=== PATIENT | male | born 1955 | race Caucasian/White ===

== ENCOUNTER 2020-12-28 09:57 | Outpatient (RCR) | payer MEDICARE, SELFPAY ==
--- NOTE | 2020-12-28 11:09 | PTOPEVAL ---
Thank you for referring DIMAS GRIFFIN to [facility].? The patient is scheduled to be seen for therapy? __2__x/week for 12 visits. Please review, sign, date and return this plan of care LUDA. I agree with and certify that the following plan of care is medically necessary. Referring Physician Date Admitting Provider: Attending Provider: ALMA RANDHAWA Referring Provider: *PT Outpatient Evaluation Start: 12/28/20 09:52 Freq: Status: Active Protocol: Document 12/28/20 09:53 AMANDA (Rec: 12/28/20 11:08 AMANDA [id number]) Therapy Assessment Status Assessment Status Assessment Status Evaluation Evaluation Information Problem Diagnosis cervical radiculopathy Onset 06/30/20 Subjective Information Pt. reports that he has been Query Text:As Reported By Patient/ having numbness and pain in Family the left arm, shouler and neck for about 6 months. He states that his pain is frequent and intensity can vary. He states that increased activity, sitting for prolonged period, or laying on his back will increase neck and arm pain. He states that he had a steroid injection that relieved pain slightly. He states that since the pain has returned to the same intensity. Pt. reports that his goal is to decrease pain. Prior Level of Function Activity Level (Last 3 Months) Occupation retired Hand Dominance Left Activity of Daily Living Ability Independent Indoor/Home Mobility Independent Community Mobility Independent Stairs Ability Independent Functional Cognition (Planning, Shopping Independent , Taking Medications) Cooking Yes Cleaning Yes Laundry Yes Shopping Yes Driving Yes Pain Assessment Timing of Pain Assessment Timing of Pain Assessment Pre-Treatment Pain Scale Pain Scale Used Numeric (1 - 10) Self Report Pain Assessment Neck Reported Pain Level 6 Lowest Pain Intensity 4 Pain Score Pain Score 6: Self Report Interventions Used Interventions Used By Clinicians Electrical Stimulation, Exercise,Heat Cervical and Lumbar ROM Cervical ROM
== END 2021-02-03 14:08 | disposition home or self-care (01) ==
LOC: CHSPT 09:57
PROVIDERS: PCP Family Medicine
DX: M54.12 Radiculopathy, cervical region (principal); M99.81 Other biomechanical lesions of cervical region
CPT/HCPCS: 97014; 97110; 97140; 97161; G0283

== ENCOUNTER 2022-11-21 11:15 | Emergency (ER) | payer MEDICARE, SELFPAY ==
[2022-11-21 11:15] VITALS: BP 111/75; PULSE 76; RESP 18; TEMP 37.2; O2SAT 98
--- NOTE | 2022-11-21 11:20 | ED.GENADULT ---
HPI - General Adult General Chief complaint: Nausea/Vomiting/Diarrhea Stated complaint: diarrhea and vomiting Time Seen by Provider: 11/21/22 11:17 Source: patient Mode of arrival: ambulatory Limitations: no limitations History of Present Illness HPI narrative: 66-year-old white male with nausea vomiting and diarrhea. Started at 3:00 a.m. history of polymyalgia rheumatica on prednisone 15 mg twice a day. he has had loose watery non bloody stools about 10-15 times and vomited 10 times since last night mostly clear liquid. Some upper abdominal discomfort from throwing up so many times. Is a history GERD and kidney stones. Denies any problems voiding , cough fever chest pain back pain rash itching. Complains of his regular joint pains knees hips shoulders. Related Data Home Medications Medication Instructions Recorded Confirmed omeprazole 20 mg capsule,delayed 20 mg PO BID 11/21/22 11/21/22 release prednisone 2.5 mg tablet 2.5 mg PO BID 11/21/22 11/21/22 tamsulosin 0.4 mg capsule 0.4 mg PO DAILY 11/21/22 11/21/22 Allergies Allergy/AdvReac Type Severity Reaction Status Date / Time Penicillins Allergy Hives Verified 11/21/22 11:45 Review of Systems Constitutional: Constitutional: Reports as per HPI Eyes: Eyes: Reports as per HPI ENT: Reports system reviewed and no additional complaints, except as documented and Denies sore throat Cardiovascular: Cardiovascular: Reports as per HPI and Denies chest pain Respiratory: Respiratory: Reports as per HPI, Denies chest congestion, Denies cough and Denies dyspnea Gastrointestinal: Gastrointestinal: Reports as per HPI, Reports abdominal pain, Denies constipation, Denies heartburn, Reports diarrhea, Reports nausea and Reports vomiting Genitourinary: Genitourinary: Reports as per HPI Musculoskeletal: Musculoskeletal: Reports no additional musculoskeletal complaints and Reports as per HPI Integumentary/Breasts: Skin/Breast: Reports system reviewed and no additional complaints, except as docu Neurologic: Reports system reviewed and no additional complaints, except as documented, Denies confusion, Denies dizziness, Denies numbness and Denies weakness Exam Narrative: white male looks tired fatigued. Head is normocephalic atraumatic eyes conjunctiva pink sclera nonicteric oropharynx is clear with moist mucous membranes. Neck is supple no lymphadenopathy. Heart is regular rate and rhythm without murmurs gallops rubs lungs are clear without wheezes rales or rhonchi. Abdomen is soft and nontender no hepatosplenomegaly or masses no CVA tenderness no abdominal bruits. Positive bowel sounds. Extremities no cyanosis clubbing or edema . Skin is warm and dry without lesions. Neurologically he is alert and oriented x4 motor and sensory grossly intact. Const: General: healthy appearing and alert Nutritional Appearance: well nourished Orientation/consciousness: patient oriented x3 Limitations: no limitations Medical Decision Making MDM Narrative Medical decision making narrative: Patient is a 66-year-old white male with history of polymyalgia rheumatica incurred complains of nausea vomiting and diarrhea with loose watery nonbloody stools since 3:00 a.m. the elevated BUN creatinine negative for flu RSV and COVID. Negative lipase magnesium. Normal white count hemoconcentrated H&H suggesting dehydration. BUN 25 creatinine 1.71 with a GFR 40 most likely secondary to his dehydration from all his nausea vomiting and diarrhea. Which is most likely from acute gastroenteritis. Was his COVID was negative but he still could be positive for COVID in that his illness just started. He could have a false negative COVID test. patient received 2 L normal saline and 4 mg IV Zofran he fill in much better and much more and agree no nausea. Shared decision making was used to discuss whether to admit him to the hospital or allow him to with self-treatmet Caden and oral fluids with follow-up with
[2022-11-21 11:33] LABS: Hematocrit 56.1 % (37.0-46.0); Hemoglobin 18.4 g/dL (12.4-15.3); Mean Corpuscular HGB Conc 32.8 g/dL (32.0-36.0); Mean Corpuscular Hemoglobin 28.8 pg (27.0-31.0); Mean Corpuscular Volume 87.7 fL (78.0-102.0); Mean Platelet Volume 9.3 fl (8.7-11.0); Platelet Count Result 304 K/mm3 (150-420); Red Cell Distribution Width 13.8 % (11.6-14.4); White Blood Count 9.1 K/mm3 (4.8-10.8)
[2022-11-21] MEDS: SODIUM CHLORIDE 0.9% IV 1,000 ML 999 ML IV CONT ×2 (11:37→12:29)
[2022-11-21] MEDS: ONDANSETRON INJ 4 MG/2 ML VIAL IV PUSH (11:38)
[2022-11-21 11:54] LABS: Lipase 46 U/L (16-77); Magnesium 1.9 mg/dL (1.8-2.4)
[2022-11-21 11:58] LABS: Alanine Aminotransferase 28 U/L (16-63); Albumin Level 3.9 g/dL (3.4-5.0); Alkaline Phosphatase 56 U/L (46-116); Anion Gap 10 mmol/L (8-16); Aspartate Amino Transferase 18 U/L (15-37); Bilirubin,Total 0.7 mg/dL (0.00-1.00); Blood Urea Nitrogen 25 mg/dL (7-18); Calcium 9.4 mg/dL (8.5-10.1); Carbon Dioxide 27 mmol/L (21-32); Chloride 106 mmol/L (98-108); Estimated CRCL calculation 35 ml/min; Estimated Glomerular Filt Rate 40; Glucose 140 mg/dL (70-99); Osmolality Calculated 302 mOsm/kg (285-295); Potassium 3.7 mmol/L (3.5-5.1); Sodium 143 mmol/L (136-145); Total Protein 7.3 g/dL (6.4-8.2)
[2022-11-21 12:10] LABS: Influenza A QL RT-PCR Negative (Negative); Influenza B QL RT-PCR Negative (Negative); SARS-CoV-2 RNA PCR Negative (Negative)
[2022-11-21 12:13] LABS: RSV RNA, RT-PCR Negative (Negative)
[2022-11-21 12:25] VITALS: BP 121/71; PULSE 80; RESP 16; TEMP 36.6; O2SAT 97
[2022-11-21] MEDS: predniSONE 5 MG TABLET PO (12:29)
[2022-11-21 13:25] VITALS: BP 133/75; PULSE 98; RESP 16; TEMP 36.7; O2SAT 99
[2022-11-21 13:33] VITALS: TEMP 36.6
== END 2022-11-21 13:35 | disposition home or self-care (01) ==
PROVIDERS: Emergency Provider Emergency Medicine; PCP Family Medicine
DX: K52.9 Noninfective gastroenteritis and colitis, unspecified (principal); Z20.822 Contact with and (suspected) exposure to COVID-19
CPT/HCPCS: 36415; 80053; 83690; 83735; 85027; 87637; 96361; 96374; 99284; J2405; J7030; J7512

== ENCOUNTER 2024-02-04 07:42 | Outpatient (RCR) | payer MEDICARE, SELFPAY ==
[2024-02-04 07:06] VITALS: BP_SYST 170
--- NOTE | 2024-02-04 08:39 | OPREHPOC ---
Outpatient Therapy Plan of Care This is a Multidisciplinary Plan of Care that may contain components documented by all disciplines (PT, OT, and ST.) PT Problem 1 PT Problem #1 Knowledge Deficit PT Goal 1 Goal Patient to demonstrate independence with HEP Target Visit 5 PT Problem 2 PT Problem #2 Pain PT Goal 1 Goal 1. Patient to demonstrate highest pain at 2/10 2. Patient to report no instance of shooting pain Target Visit 10 PT Problem 3 PT Problem #3 Impaired Range of Motion PT Goal 1 Goal 1. Patient to demonstrate 160 deg of R shoulder AROM flexion and abduction to return to house hold tasks at PLOF 2. Patient to demonstrate ability to reach to T10 with no increase in R shoulder pain Target Visit 10 PT Problem 4 PT Problem #4 Impaired Strength PT Goal 1 Goal Patient to demonstrate 5/5 strength of the R shoulder to return to yard work at PLOF Target Visit 10 PT Problem 5 PT Problem #5 Impaired Functional Mobil PT Goal 1 Goal 1. Patient to score less than 20% impairments on QuickDASH 2. Patient to demonstrate ability to reach his wallet with no increase in R shoulder pain Target Visit 10
--- NOTE | 2024-02-04 08:39 | PTOPEVAL1 ---
Assessment and note entered by Makeda Gregory DPT Evaluation Information Assessment Status Evaluation Diagnosis R shoulder pain Onset 01/30/24 Subjective Information Patient reports he was cutting wood all day about 5 weeks ago and the next day woke up with R shoulder pain. He reports the pain was sore and tight . He reports since onset pain has been getting better but still has periods of pain. He reports he went to the MD and was examined but no treatments given. He reports pain is in the front of the shoulder. He reports difficulty with reaching to get his wallet or phone, reaching out to the side and reaching down to lift. He denies history of R shoulder pain. 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 Reported Pain Level Pain Score 2: Self Report Assessment PT Clinical Summary Mr. Kwok is a 68 year old male who presents to PT with R shoulder pain. Patient demonstrates decreased R shoulder ROM, decreased R shoulder strength and tenderness to the proximal bicep tendon limiting his ability to reach to his back pocket, reach out to the side for house hold tasks and reach down to pickler helper objects. He would benefit from skilled PT to address impairments and return to PLOF. Plan of Care Interventions Electrical Stimulation,Hot Pack/Cold Pack,Manual Therapy,Neuro Re-education,Patient/Caregiver Educati,Therapeutic Activities,Therapeutic Exercise PT Services Indicated Yes Treatment Frequency and 2x weekly for 10 visits Duration These treatments will address the objective and functional deficits as defined above. The patient will be advanced safely and appropriately in order for the patient to progress towards his/her prior level of function. Additional exercises will be introduced and as well as a comprehensive home exercise program upon discharge, if needed, ?to ensure carryover of functional gains achieved in the clinic. This treatment plan has been reviewed and agreement upon by the patient.
--- NOTE | 2024-03-05 08:32 | OPREHPOC ---
Outpatient Therapy Plan of Care This is a Multidisciplinary Plan of Care that may contain components documented by all disciplines (PT, OT, and ST.) PT Problem 1 PT Problem #1 Knowledge Deficit PT Goal 1 Goal Patient to demonstrate independence with HEP Target Visit 16 Progress Not Met PT Problem 2 PT Problem #2 Pain PT Goal 1 Goal 1. Patient to demonstrate highest pain at 2/10 2. Patient to report no instance of shooting pain Target Visit 16 Progress Not Met PT Problem 3 PT Problem #3 Impaired Range of Motion PT Goal 1 Goal 1. Patient to demonstrate 160 deg of R shoulder AROM flexion and abduction to return to house hold tasks at PLOF 2. Patient to demonstrate ability to reach to T10 with no increase in R shoulder pain Target Visit 16 Progress Not Met PT Problem 4 PT Problem #4 Impaired Strength PT Goal 1 Goal Patient to demonstrate 5/5 strength of the R shoulder to return to yard work at PLOF Target Visit 16 Progress Not Met PT Problem 5 PT Problem #5 Impaired Functional Mobil PT Goal 1 Goal 1. Patient to score less than 20% impairments on QuickDASH. met 2. Patient to demonstrate ability to reach his wallet with no increase in R shoulder pain Target Visit 16 Progress Partially Met
--- NOTE | 2024-03-05 08:32 | PTOPREEVAL ---
Assessment and note entered by JT File, PT Evaluation Information Assessment Status Re-evaluation Diagnosis R shoulder pain Onset 01/30/24 Subjective Information patient reports he is doing better and overall has less pain. however, he reports at times he will still get twinges of pain in the R shoulder . he reports he still has those twinges with pulling movements. he reports he has also noticed raising the arm up overhead when laying on his back. he reports he also is not comfortable with throwing activities. Reported Pain Level Pain Score 1: Self Report Assessment PT Clinical Summary mr kelley presents to skilled PT for his 10th skilled therapy visit. he presents today with improvements in strength and decreased pain/ symptoms. however, he still lacks achievement of goals for strength, rom, and pain. he has made progress towards all goals, and given patients reports of subjective improvement, he would benefit from continued skilled PT to work on his remaining objective/functional deficits to achieve all goals for skilled PT. Plan of Care Interventions Electrical Stimulation,Hot Pack/Cold Pack,Manual Therapy,Neuro Re-education,Patient/Caregiver Educati,Therapeutic Activities,Therapeutic Exercise PT Services Indicated Yes Treatment Frequency and continue skilled PT 2x weekly for 6 more visits Duration These treatments will address the objective and functional deficits as defined above. The patient will be advanced safely and appropriately in order for the patient to progress towards his/her prior level of function. Additional exercises will be introduced and as well as a comprehensive home exercise program upon discharge, if needed, ?to ensure carryover of functional gains achieved in the clinic. This treatment plan has been reviewed and agreement upon by the patient.
--- NOTE | 2024-03-26 08:07 | OPREHPOC ---
Outpatient Therapy Plan of Care This is a Multidisciplinary Plan of Care that may contain components documented by all disciplines (PT, OT, and ST.) PT Problem 1 PT Problem #1 Knowledge Deficit PT Goal 1 Goal Patient to demonstrate independence with HEP Target Visit 16 Progress Met PT Problem 2 PT Problem #2 Pain PT Goal 1 Goal 1. Patient to demonstrate highest pain at 2/10 - progress towards (3/10) 2. Patient to report no instance of shooting pain -met Target Visit 16 Progress Partially Met PT Problem 3 PT Problem #3 Impaired Range of Motion PT Goal 1 Goal 1. Patient to demonstrate 160 deg of R shoulder AROM flexion and abduction to return to house hold tasks at PLOF -progress towards (153) 2. Patient to demonstrate ability to reach to T10 with no increase in R shoulder pain -progress towards (T12) Target Visit 16 Progress Partially Met PT Problem 4 PT Problem #4 Impaired Strength PT Goal 1 Goal Patient to demonstrate 5/5 strength of the R shoulder to return to yard work at PLOF -partially met (4+/5 on flex/abd) Target Visit 16 Progress Partially Met PT Problem 5 PT Problem #5 Impaired Functional Mobil PT Goal 1 Goal 1. Patient to score less than 20% impairments on QuickDASH. met 2. Patient to demonstrate ability to reach his wallet with no increase in R shoulder pain Target Visit 16 Progress Met
--- NOTE | 2024-03-26 08:07 | PTOPDC ---
Assessment and note entered by Samina Arizmendi, PT Evaluation Information Assessment Status Discharge Diagnosis R shoulder pain Onset 01/30/24 Subjective Information Tito Kwok reports he still notes occasional pain when he reaches across his body when he isn' t warmed up. He notes this happens about once a day and pain lingers for 1-5 minutes. He feels overall his shoulder is better overall. He is able to dress pain free, groom pain free, use a hammer pain free, and perform daily tasks pain free. He feels he could continue independently with his home exercises. Reported Pain Level Pain Score 0: Self Report Assessment PT Clinical Summary Tito Kwok has completed 15 skilled PT visits for right shoulder pain. He is reporting overall improvements with his right shoulder noting he can perform all daily tasks and even heavier tasks pain free. He does get occasional pain reaching across his body but the pain subsides quickly. He now only perceives a 9% disability per the Quick DASH questionnaire. He objectively demonstrates improved right shoulder AROM, improved right shoulder strength, and negative special tests. He is still limited into IR but is independent with a stretch as part of his home exercise program to continue. He also has exercises to continue for strength and posture. He will be discharged. Plan of Care PT Services Indicated No
== END 2024-03-26 08:11 | disposition home or self-care (01) ==
LOC: CHSPT 07:42
PROVIDERS: Visit Provider Family Medicine
DX: M25.811 Other specified joint disorders, right shoulder (principal)
CPT/HCPCS: 97014; 97110; 97140; 97150; 97161; 97750; G0283

== ENCOUNTER 2025-05-27 05:45 | Day surgery (SDC) | payer MEDICARE, SELFPAY ==
[2025-05-07 12:46] VITALS: BMI 26.0
--- OUTSIDE RECORDS SUMMARY | 2025-05-27 05:59 | XMS_ITS | Encounter Summary ---
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 Name Role Phone Inocente Kohler MD Primary Care Provider [phone] Encounter Details Date Type Department Care Team (Late st Contact Info) Description 03/28/2019 Abstract [facility] CONVERSION [address] [place] [address] , Generic ConversionMD Social History Tobacco Use Types Packs/Day Years Used Date Smoking Tobacco: Never Assessed Sex and Gender Information Value Date Recorded Sex Assigned at Male 05/20/2025 7:56 AM CDT Legal Sex 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 Gender Identity Not on file Sexual Orientation Not on file documented as of this encounter Plan of Treatment Not on file documented as of this encounter Visit Diagnoses Not on filedocumented in this encounter Additional Health Concerns Infection Onset Date Last Indicated Resolved Time COVID-19 Rule Out 10/22/2020 10/22/2020 10/23/2020 3:32 PM 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
--- OUTSIDE RECORDS SUMMARY | 2025-05-27 05:59 | XMS_ITS | Continuity of Care Document ---
Author Organization [facility] Address [address] [place] [address] Phone Care Team Providers Care Dealer Sales Manager Name Role Phone Cee Peraza MD Unavailable Unavailable Allergies, Adverse Reactions, Alerts Substance Reaction Status Criticality No Known Allergies Active No Inform ation Medications Medication Instructions Dosage Effective Dates (start - stop) Status Comments furosemide 40 mg tablet take 1 tablet by oral route every morning and take one-half tablet by mouth every evening around 2-3pm - Active ALBUTEROL HFA INH (200 PUFFS) 6.7GM INHALE 2 PUFFS BY MOUTH EVERY 4 TO 6 HOURS NEEDED - Active metoprolol succinate ER 25 mg tablet,extended release 24 hr take 1 tablet by oral route every day with 50mg=75mg - Active metoprolol succinate ER 50 mg tablet,extended release 24 hr take 1 tablet by oral route every day with 25mg=75mg - Active ivabradine 5 mg tablet take 1 tablet by oral route 2 times every day 5 MG - Active mexiletine 150 mg capsule take 1 capsule by oral route every 12 hours with food 150 MG - Active warfarin 5mg tablet 15mg M,W,F et 12.5mg T,,Sat and Sun - Active amiodarone 200 mg tablet take 1 tablet by oral route 2 times every day 1 tablet - Active metoprolol tartrate 25 mg tablet take 1 tablet by oral route 2 times every day 25 MG - Active atorvastatin 20 mg tablet take 1 tablet by oral route every day 20 MG - Active Lidocaine Pain Relief 4 % topical patch - Active lisinopril 5 mg tablet take 1/2 tablet b y mouth daily - Active Vitamin C 500 mg capsule,extended release take one tablet by mouth daily - Active Breztri Aerosphere 160 mcg-9mcg-4.8mcg/actuat ion HFA aerosol inhaler inhale 2 puff by inhalation route 2 times every day in the morning and evening 2.00 puff - Active ascorbic acid (vitamin C) 500 mg capsule 1tablet by mouth daily - Active cyanocobalamin (vit B-12) 250 mcg tablet Take one tablet by mouth daily - Active levothyroxine 50 mcg capsule take 1 capsule by oral route every day 50 MCG - Active midodrine 10 mg tablet take 1 tablet by oral route 3 times every day 10 MG - Active pantoprazole 40 mg tablet,delayed release take 1 tablet by oral route every day 40 MG - Active potassium chloride ER 20 mEq tablet,extended release take 1 tablet by oral route every day with food 20 MEQ - Active gabapentin 300mg capsule Take four capsules by mouth daily - Active hydrocodone-acetaminop hen 10-325mg tablet As Needed - Active amitriptyline 50mg tablet Take one tablet by mouth daily - Active Aspir-81 81mg tablet,delayed release (DR/EC) Use as Directed - Active Procedures Procedure Date Mgmt Complx Cond (MED-MRP only) 025 High level of MDM Mgmt Complx Cond (MED-MRP only) 025 High level of MDM Office Visit Established Office Visit New High level of MDM Mgmt Complx Cond (MED-MRP only) 025 Facility fee for Clinic Visit 5 Myocardial Perfusion Imaging Office Visit Established Facility fee for Clinic Visit Mgmt Complx Cond (MED-MRP only) 025 High level of MDM Mgmt Complx Cond (MED-MRP only) 024 High level of MDM Office Visit Established Facility fee for Clinic Visit 4 High level of MDM Office Visit New Facility fee for Clinic Visit 4 High level of MDM Mgmt Complx Cond (MED-MRP only) 024 Facility fee for Clinic Visit 4 Office Visit Established L Heart Artery/ventrical Angio 24 Conscious Sedation >5 1st 15 min 2023 Subsequent Hospital Care (>=50 min) Subsequent Hospital Care (>=50 min) Subsequent Hospital Care (>=50 min) Initial Inpatient Consult Cataract Follow up Both Eyes Facility fee for Clinic Visit 2 Remove Cataract,insert Lens Remove Cataract,insert Lens Cataract Follow Up Visit 2 Facility fee for Clinic Visit 2 Cataract Follow up Visit 1 Facility fee for Clinic Visit 2 Remove Cataract,insert Lens Remove Cataract,insert Lens Office Visit New Facility fee for Clinic Visit 2 Office Visit Established Facility fee for Clinic Visit 5 Colonoscopy W/bx, Single Or Multiple Jun Facility fee for Clinic Visit 5 Office Visit New Office Visit EstablishedOffic/outpt E natalya Jordan Low Advance Directives Directive Yes / No Effective Date File Name No Information Encounters Encounter Description Practice Location Reason(s) For Visit Diagnoses Date Provider Providers Copied on Encounter High level of MDM [facility], [address] [place] [address], [facility], tel: [phone] [facility] Atherosclerotic heart disease of [place] coronary artery without angina pectorisCardiomyopat hy, unspecifiedChronic total occlusion of coronary arteryEssential (primary) hypertensionHyperlip idemia, unspecifiedPeriphera l vascular disease, unspecifiedSyncope and collapseVentricular tachycardia, unspecified 5 Stu Mike. [address] [place] [address], [address], . tel: [phone] [facility], [address] [place] [address], [facility], tel: [phone] [facility] No Information 5 Kellylavelleboone Plattcristimariah. [address] , [place], [place], [facility]. tel: [phone] High level of MDM [facility], [address] [place] [address], [facility], tel: [phone] [facility] Atherosclerotic heart disease of [place] coronary artery without angina pectorisCardiomyopat hy, unspecifiedChronic total occlusion of coronary arteryEssential (primary) hypertensionHyperlip idemia, unspecifiedOther specified postprocedural statesPeripheral vascular disease, unspecifiedSyncope and collapseVentricular tachycardia, unspecified 5 Stu Mike. [address] [place], [place], [facility], . tel: [phone] Office Visit Established [facility], [address] [place] [address], [facility], tel: [phone] [facility] Peripheral vascular disease, unspecified 5 Stanabil Sheeba. [address] [place], [place], [facility], [place]. tel: [phone] Office Visit New [facility], [address] [place] [address], [facility], tel: [phone] [facility] Peripheral vascular disease, unspecified 5 Stach Sheeba. [address] [place], [place], [facility], [place]. tel: [phone] Referring Provider: Lizzy Acosta, [address] [facility], [place], [place], [facility]. [phone] High level of MDM [facility], [address] [place] [address], [facility], tel: [phone] [facility] Atherosclerotic heart disease of [place] coronary artery without angina pectorisCardiomyopat hy, unspecifiedChronic total occlusion of coronary arteryEssential (primary) hypertensionHyperlip idemia, unspecifiedPeriphera l vascular disease, unspecifiedSyncope and collapseVentricular tachycardia, unspecified Feb-1 0-202 5 Stu Mike. [address] [place], [place], [facility], . tel: [phone] [facility], [address] [place], [place], [facility], tel: [phone] [facility] Cardiomyopathy, unspecified 5 Denise Michel. [address] [place], [place], [facility], . tel: [phone] Office Visit Established [facility], [address] [place] [address], [facility], tel: [phone] [facility] Dyspnea, unspecifiedChronic obstructive pulmonary disease, unspecifiedEmphysema , unspecifiedChronic respiratory failure with hypoxiaNicotine dependence, cigarettes, in remission 5 Evert Luque. [address] [place], [facility], . tel: [phone] High level of MDM [facility], [address] [place], [place], [facility], tel: [phone] [facility] Atherosclerotic heart disease of [place] coronary artery without angina pectorisChronic total occlusion of coronary arteryEssential (primary) hypertensionHyperlip idemia, unspecifiedPeriphera l vascular disease, unspecifiedSyncope and collapseVentricular tachycardia, unspecifiedAcute kidney failure, unspecified 5 Stu Mike. [address] [place], [facility], [place]. tel: [phone] High level of MDM [facility], [address] [place], [place], [facility], tel: [phone] [facility] Atherosclerotic heart disease of [place] coronary artery without angina pectorisChronic total occlusion of coronary arteryEssential (primary) hypertensionHyperlip idemia, unspecifiedOther specified postprocedural statesPeripheral vascular disease, unspecifiedVentricul ar tachycardia, unspecified 4 Stu Mike. [address] [place], [facility], [place]. tel: [phone] Office Visit Established [facility], [address] [place] [address], tel: [phone] [facility] Chronic obstructive pulmonary disease, unspecifiedEmphysema , unspecifiedIdiopathi c sleep related nonobstructive alveolar hypoventilationPerso nal history of nicotine dependence 4 Ari- Dirk Ene. [address] [place], [facility], [place]. tel: [phone] High level of MDM [facility], [address] [place] [address], [facility], [place] tel: [phone] [facility] Atherosclerotic heart disease of [place] coronary artery without angina pectorisChronic total occlusion of coronary arteryEssential (primary) hypertensionHyperlip idemia, unspecifiedPeriphera l vascular disease, unspecifiedSyncope and collapseVentricular tachycardia, unspecified 4 Stu Mike. [address] [place], [facility], [place]. tel: [phone] [facility], [address] [place] [address], [facility], tel: [phone] [facility] No Information 4 Ari- Dirk Luque. [address] [place], [facility], [place]. tel: [phone] Office Visit New [facility], [address] [place] [address], [facility], tel: [phone] [facility] Chronic obstructive pulmonary disease, unspecifiedEmphysema , unspecifiedPersonal history of nicotine dependenceIdiopathic sleep related nonobstructive alveolar hypoventilation 4 Evert Luque. [address], [place], [place], [facility], [place]. tel: [phone] Referring Provider: Cee Peraza, [address], [place], [place], [facility]. tel:[phone] High level of MDM [facility], [address] [place] [address], [facility], [place] tel: [phone] [facility] Acute kidney failure, unspecifiedAtheroscl erotic heart disease of [place] coronary artery without angina pectorisChronic total occlusion of coronary arteryEssential (primary) hypertensionHyperlip idemia, unspecifiedOther specified postprocedural statesPeripheral vascular disease, unspecifiedSyncope and collapseVentricular tachycardia, unspecified 4 Stu Mike. [address] [place] [address], . tel: [phone] Office Visit Established [facility], [address] [place] [address], tel: [phone] [facility] Atherosclerotic heart disease of [place] coronary artery without angina pectorisVentricular tachycardia, unspecifiedAcute kidney failure, unspecifiedOther specified postprocedural states 4 Stu Mike. [address] [place] [address], . tel: [phone] Subsequent Hospital Care (>=50 min) [facility], [address] [place] [address], tel: [phone] [facility]/ Atherosclerotic heart disease of [place] coronary artery without angina pectorisChronic total occlusion of coronary arteryVentricular tachycardia, unspecifiedHyperlipi demia, unspecifiedEssential (primary) hypertensionPeripher al vascular disease, unspecifiedSyncope and collapse 4 Stu Mike. [address] [place] [address], . tel: [phone] Subsequent Hospital Care (>=50 min) [facility], [address] [place] [address], tel: [phone] [facility]/ Hyperlipidemia, unspecifiedEssential (primary) hypertensionVentricu lar tachycardia, unspecifiedPeriphera l vascular disease, unspecifiedSyncope and collapse 4 Stu Mike. [address] [place] [address], . tel: [phone] Subsequent Hospital Care (>=50 min) [facility], [address] [place] [address], [facility], tel: [phone] [facility]/ Hyperlipidemia, unspecifiedEssential (primary) hypertensionVentricu lar tachycardia, unspecifiedPeriphera l vascular disease, unspecifiedSyncope and collapse 4 Stu Mike. [address], [place], [place], [facility], [place]. tel: [phone] Initial Inpatient Consult [facility], [address] [place] [address], [facility], [place] tel: [phone] [facility] Medical [place]/IP Hyperlipidemia, unspecifiedEssential (primary) hypertensionVentricu lar tachycardia, unspecifiedPeriphera l vascular disease, unspecifiedSyncope and collapse 4 Stu Mike. [address], [place], [place], [facility], [place]. tel: [phone] [facility], [address] [place] [address], [facility], [place] tel: [phone] [facility] Presence of intraocular lens 2 Vero Marcial. [address] [place] [address]. tel: [phone] [facility], [address] [place] [address], [facility], [place] tel: [phone] [facility] Age-related nuclear cataract, left eye 2 Vero Marcila. [address], [facility]. tel: [phone] [facility], [address] [place] [address], [facility], [place] tel: [phone] [facility] Presence of intraocular lens 2 Vero Marcial. [address], [facility]. tel: [phone] [facility], [address] [place] [address], [facility], [place] tel: [phone] [facility] Presence of intraocular lens 2 Vero Marcial. [address], [facility]. tel: [phone] [facility], [address] [place] [address], [facility], [place] tel: [phone] [facility] Medical Center/OP No Information 2 Vero Marcial. [address], [address]. tel: [phone] Office Visit New [facility], [address] [place] [address], [facility], [place] tel: [phone] [facility] No Information 2 Vero Marcial. [address], [address]. tel: [phone] Referring Provider: Aniket Andres, [address] [place], [address]. tel:[phone] Office Visit Established [facility], [address] [place] [address], [facility], [place] tel: [phone] [facility] Full incontinence of fecesDiarrhea, unspecified 5 Firch Michelle. [address] [place] [address], [facility]. tel: [phone] [facility], [address] [place] [address], [facility], [place] tel: [phone] [facility] DVRTCLO COLON W/O HMRHGDiarrhea 5 Friend Sean. [address] [place] [address], [facility]. tel: [phone] Office Visit New [facility], [address] [place] [address], [facility], [place] tel: [phone] [facility] FULL INCONTINENCE-FECESDi arrhea 5 Firch Michelle. [address] [place] [address], [facility]. tel: [phone] Office Visit EstablishedO ffic/outpt E m Estab Low [facility], [address] [place] [address], [facility], [place] tel: [phone] [facility] No Information 2200 7 Moi Conklin. [address] [place], [address]. tel: [phone] Family History Family Member Type Diagnosis Age At Onset No Information Payers Payer name Insurance type Covered libertarian ID Authorneri olson(s) Medicare Part B (NGS) M [id number] [facility] C [id number] Social History Type Description Quantity Date Captured Comments Sex Male Smoking Status No Information Vital Signs Date / Time: Height Weight BMI Pulse Rate Blood Pressure Temperature Respiratory Rate Body Surface Area Head Circumference BMI percentile Pulse Ox Inhaled Ox 8:36 AM 71.00 in 261.00 lbs 36.4 0 kg/m eter (2) 60 /min 110/64 mm[Hg] 17 /min 2.36 meter(2) 97 Chief Complaint And Reason For Visit No Information History Of Present Illness Encounter Date Complaint History Of Prese nt Illness No Information Instructions Date Instruction Additional Infor mation No Information Assessments Type Assessment Date No Information
--- OUTSIDE RECORDS SUMMARY | 2025-05-27 05:59 | XMS_ITS | Clinical Summary ---
Author Organization [facility] Address [facility] [place] [address] Care Team Providers Care Mold Finisher Name Role Phone Inocente Kohler MD Primary Care Provider Allergies Active Allergy Reactions Criticality Noted Date Comments Penicillins Rash Low 04/02/2017 Medications omeprazole EC (PRILOSEC OTC) 20 MG tablet Take 1 tablet by mouth daily. 04/02/2017 Active tamsulosin 0.4 MG Cap Take 1 capsule by mouth daily. 09/26/2020 Active acetaminophen 500 MG tablet Take 500 mg by mouth every 6 (six) hours as needed for Pain. Active predniSONE (DELTASONE) 1 MG tablet Take 3 mg by mouth daily. Active Active Problems Problem Noted Date Diagnosed Date Acute gastroenteropathy due to Norovirus 023 Dehydration 11/25/2022 Acute renal insufficiency 11/22/2022 Radiculopathy, cervical region 12/23/2020 Neural foraminal stenosis of cervical spine 11/21 Cubital tunnel syndrome on left 10/18/2020 Carpal tunnel syndrome, unspecified laterality 1 2019 Ulnar neuropathy at elbow of left upper extremit y 09/29/2020 Cervical radiculopathy 09/29/2020 Encounters Date Type Department Care Team Description 05/20/2025 8:00 AM CDT - 05/20/2025 11:59 PM CDT Hospital Encounter [facility] [address] [place] [address] Pam Sorenson MD Discharge Disposition: Home or Self Care (Routine Discharge) 05/20/2025 Travel from Last 3 Months Immunizations Immunization Administration Dates Next Due Fluzone 6 Months+ Quad (0.5 mL Prefilled Syringe ) 11/24/2022 Family History Medical History Relation Comments No Known Problems Brother 1 No Known Problems Brother 2 Asthma Father Cancer Father Arthritis Mother Cancer Mother No Known Problems Sister Relation Status Comments Brother 1 Alive Brother 2 Alive Father Mother Sister Alive Social History Tobacco Use Types Packs/Day Years Used Date Smoking Tobacco: Never Smokeless Tobacco: Never Alcohol Use Standard Drinks/Week Comments Never 0 (1 standard drink = 0.6 oz pur e alcohol) Humiliation, Afraid, Rape, and Kick questionnair e Answer Date Recorded Within the last year, have y ou been afraid of your partner or ex-partner? No 11/22/2022 Within the last year, have y ou been humiliated or emotionally abused in other ways by your partner or ex-partner? No Within the last year, have y ou been kicked, hit, slapped, or otherwise physically hurt by your partner or ex-partner? No 11/22/2022 Within the last year, have y ou been raped or forced to have any kind of sexual activity by your partner or ex-partner? No 11/22/2022 AUDIT-C Answer Date Recorded Q1: How often do you have a drink containing alc ohol? Never 10/18/2020 Average Number of Drinks Not on file 020 Frequency of Binge Drinking Not on file 09/21 Overall Financial Resource Strain (CARDIA) Answe r Date Recorded How hard is it for you to pa y for the very basics like food, housing, medical care, and heating? Not hard at all 11/22/2022 Hunger Vital Sign Answer Date Recorded Within the past 12 months, y ou worried that your food would run out before you got the money to buy more. Never true 11/22/19 23 Within the past 12 months, t he food you bought just didn't last and you didn't have money to get more. Never true 11/22/2022 PRAPARE - Transportation Answer Date Re corded In the past 12 months, has l ack of transportation kept you from medical appointments or from getting medications? No 11/2022 In the past 12 months, has l ack of transportation kept you from meetings, work, or from getting things needed for daily living? No 11/22/2022 Housing Stability Vital Sign Answer Harry e Recorded In the last 12 months, was t here a time when you were not able to pay the mortgage or rent on time? No 11/22/2022 In the last 12 months, how many places have you lived? 1 11/22/2022 In the last 12 months, was t here a time when you did not have a steady place to sleep or slept in a care home (including now)? 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 Gender Identity Not on file Sexual Orientation Not on file Last Filed Vital Signs Vital Sign Reading Time Taken Comments Blood Pressure 136/68 11/25/2022 5:07 AM CRYSTALIZER OPERATOR Pulse 71 11/25/2022 5:07 AM CRYSTALIZER OPERATOR Temperature 37 C (98.6 F) 11/25/2022 5:07 AM CRYSTALIZER OPERATOR Respiratory Rate 20 11/25/2022 5:07 AM CRYSTALIZER OPERATOR Oxygen Saturation 97% 11/25/2022 5:07 AM CRYSTALIZER OPERATOR Inhaled Oxygen Concentration - - Weight 76 kg (167 lb 9.6 oz) 11/22/2022 6:49 PM CRYSTALIZER OPERATOR Height 170.2 cm (5' 7) 11/22/2022 6:49 PM CRYSTALIZER OPERATOR Body Mass Index 26.25 11/22/2022 6:49 PM CRYSTALIZER OPERATOR Plan of Treatment Health Maintenance Due Date Last Done Comments Hepatitis C 1972 DTaP, Tdap and Td Vaccines ( 1 - Tdap) 1973 Pneumococcal Vaccine: 50+ Years (1 of 1 - PCV) 2004 Zoster Vaccines (1 of 2) 2004 Annual Medicare Wellness Visit 2019 COVID-19 Vaccine ( - 2023-2 5 season) 2024 RSV Immunization or 60+ Years (1 - 1-dose 75+ series) 2029 Colorectal Cancer Screening Colonoscopy (10 Years) 10/25/2030 10/25/2020, 10/25/2020 Meningococcal B Vaccine Aged Out No l onger eligible based on patient's age to complete this topic Meningococcal Vaccine Aged Out No chio ginger eligible based on patient's age to complete this topic RSV Immunizations Under 20 Months Aged Out No longer eligible b ased on patient's age to complete this topic Goals Goal Patient Goal Type Associated Problems Recent Progress Patient-Stated? 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 Ordered By: PAM SORENSON Interpreted By: Wilfrido Jalloh MD, 05/21/2025 1:52 PM Narrative 05/21/2025 1:55 PM CDT [address] [place] [address] Examination: Nonvascular right groin sonogram Exam time: 05/20/2025 Clinical history: Right inguinal hernia. History of inguinal hernia repair in the right side. Comparison: 05/20/2025. CT abdomen/pelvis on 12/10/2022. Technique: Sonography of the right groin obtained using grayscale images and color Doppler flow. Findings: Subcentimeter inguinal lymph nodes with normal morphology. No large discrete pathologic mass or cystic lesion. No evidence of hernia. Procedure Note Wilfrido Jalloh MD - 05/21/[address] [place] [address] Examination: Nonvascular right groin sonogram Exam time: 05/20/2025 Clinical history: Right inguinal hernia. History of inguinal hernia repairin the right side. Comparison: 05/20/2025. CT abdomen/pelvis on 12/10/2022. Technique: Sonography of the right groin obtained using grayscale imagesand color Doppler flow. Findings: Subcentimeter inguinal lymph nodes with normal morphology. Nolarge discrete pathologic mass or cystic lesion. No evidence of hernia. IMPRESSION: No evidence of right inguinal hernia. Ordered By: PAM SORNESON Interpreted By: Wilfrido Jalloh MD, 05/21/2025 1:52 PM us Pam Sorenson MD ULTRASOUND Final Resu lt * COLONOSCOPY (10/25/2020 8:25 AM CRYSTALIZER OPERATOR) us Tone Cam MD GI PROCEDURE ORDERABLES Final Result from Last 3 Months or Most Recently Relevant to Health Maintenance Insurance MEDICARE AET Advance Directives * Full Code (Latest Code Status on File) Date Activated Date Inactivated Comments 11/22/2022 6:39 PM 11/25/2022 1:28 PM Care Teams Mold Finisher Relationship Specialty Start Date End Date Inocente Kohler MD [address] [place] [id number] PCP - General FAMILY PRACTICE 09/28/20
[2025-05-27 06:24] VITALS: BP 140/87; PULSE 63; RESP 18; TEMP 36.9; O2SAT 99
[2025-05-27 06:26] VITALS: BMI 24.8
[2025-05-27] MEDS: LACTATED RINGERS 1,000 ML 30 ML IV CONT (06:47)
[2025-05-27] MEDS: ACETAMINOPHEN 500 MG TABLET 1000 MG PO (06:48)
--- NOTE | 2025-05-27 06:48 | P.OP_ITS ---
Procedure Note - Detailed Date of Procedure 05/27/25 Pre-op Diagnosis Left Carpal and Cubital Tunnel Syndrome Post-op Diagnosis Same Procedure Performed left ectr and CuTR Surgeon Rashida Naqvi MD Final Inspector Movement Assembly shelbi dailey pa-c Anesthesia MAC Description of Procedure INFORMED CONSENT: The patient was seen and examined and marked in the pre-op area.? The patient signed the consent form. PROCEDURE IN DETAIL:The patient taken back to OR on the stretcher in supine position. Time out performed with anesthesia, surgeon and staff agreeing on patient's name site and surgery to be performed SCDs were placed on the lower extremities and inflated. A tourniquet was placed on {left} upper extremity and antibiotics given IV After anesthesia administered sedation I injected {10}cc 1%lido with epi and 0.5% marcaine plain at the operative sites The?{left upper extremity}?was prepped and draped in sterile fashion the??{left upper extremity} was? exsanguinated with Esmarch bandage and tourniquet inflated to 250mmHg I made a transverse incision in the {left} volar distal wrist crease through skin and dermis with 15 blade scalpel.? Littler scissors spread down to antebrachial fascia. A small incision was made in antebrachial fascia allowing access to Carpal tunnel. I proceeded with sequential dilation staying in line with the ring finger and hugging the hook of the hamate.? I then used the synovial elevator to free any adhesions from the underside of the transverse carpal ligament. Next I was able to insert the Microaire endoscopic carpal tunnel device with direct visualization of the transverse fibers on the monitor and proceeded with complete segmental retrograde release of the ligament in its entirety.? I irrigated with normal saline and closed with 4-0 monocryl for dermis and subcuticular closure. I next proceeded with making a longitudinal incision between two heads for flexor carpi ulnaris at end of {left} cubital tunnel with 15 blade scalpel.? Littler scissors were used to spread down to FCU fascia.? An incision was made in FCU fascia and ulnar nerve identified exiting cubital tunnel.? I proceeded with complete retrograde release of the cubital tunnel including 7cm proximal for the intermuscular septum.? The nerve appeared healthy with visible vaso nervorum.? There was no subluxation on full elbow range of motion. ? I irrigated with normal saline and closure with 4-0 monocryl for dermis and subcuticular. The incisions were covered with Dermabond then 4x4s, rick, and a posterior elbow and volar wrist splint for patient safety, security and comfort and secured with josé bandages after the tourniquet was let down noting the hand was warm and well perfused.? Patient awaken from anesthesia and transferred to recovery in stable condition Complications - none EBL- 1cc Disposition - home in stable condition shelbi dailey pa-c was essential for positioning, retraction, closure and dressing placement [facility] Billing Surgery - Charge Forward: Surgery Billing ([id number] same for shelbi adding )
--- NOTE | 2025-05-27 06:48 | PM.HPGS ---
History of Present Illness History of Present Illness Chief complaint: Left Carpal and Cubital Tunnel Syndrome Narrative: Patient seen and examined in pre-operative holding area. No interval change in medical history or symptoms. Patient recalls previous discussion of benefits and alternatives to procedure. Continues to desire to proceed with left endoscopic possible open carpal tunnel release and left cubital tunnel release . Reviewed procedure, post-op expectations and risks including but not limited to bleeding, infection, injury to tendon/nerve/vessel, decreased hand function, stiffness, RSD, no change or worsening of symptoms. I discussed the possible use of assistants and their participation in the case. Patient stated understanding and signed the consent form wishing to proceed. Review of Systems Review of Systems: All systems reviewed & are unremarkable except as noted in HPI and below PMFSH Social History Social History (Updated 03/09/25 @ 10:51 by Kim Lynn MA) Smoking status: Never smoker Second hand tobacco smoke exposure: Yes Substance use type: does not use Living arrangements: alone Spiritual care concerns: No Meds Home Medications and Allergies Home Medications ?Medication ?Instructions ?Recorded ?Confirmed ?Type omeprazole 20 mg capsule,delayed 20 mg PO DAILY 11/21/22 05/27/25 History release tamsulosin 0.4 mg capsule 0.4 mg PO DAILY 11/21/22 05/27/25 History rosuvastatin 10 mg tablet 10 mg PO DAILY 05/07/25 05/27/25 History tramadol 50 mg tablet 50 mg PO Q6H PRN pain #12 tabs 05/27/25 Rx Allergies Allergy/AdvReac Type Severity Reaction Status Date / Time Penicillins Allergy Hives Verified 05/27/25 06:15 Vital Signs Vital Signs - 24 hr 05/27/25 06:24 Temperature 36.9 C Pulse Rate 63 Respiratory Rate 18 Blood Pressure 140/87 Pulse Oximetry 99 Oxygen Delivery Room Air Exam Narrative: unchnaged Assessment and Plan Assessment and plan (1) Left carpal tunnel syndrome: Code(s): G56.02 - Carpal tunnel syndrome, left upper limb Status: Acute Assessment and Plan: cont as above (2) Entrapment of left ulnar nerve at elbow: Code(s): G56.22 - Lesion of ulnar nerve, left upper limb Status: Acute
--- NOTE | 2025-05-27 06:52 | WPDANESEPPF ---
Anes - Initial Pre Proc Eval Procedure: Operation Date: 05/27/25 07:30 Proposed Procedures p Left Endoscopic Carpal Tunnel Release, Possible Open Carpal Tunnel Release - Rashida Naqvi MD s Left Cubital Tunnel Release - Rashida Naqvi MD Date/Time: 05/27/25 06:52 Surgeon: Rashida Naqvi MD Pre Op Diagnosis: Left Carpal and Cubital Tunnel Syndrome Patient Data Age: 69 Gender: M Height: 1.7 m Weight: 72 kg Last Vital Signs Temp 98.4 F 05/27/25 06:24 Pulse 63 05/27/25 06:24 Resp 18 05/27/25 06:24 BP 140/87 05/27/25 06:24 Pulse Ox 99 05/27/25 06:24 O2 Del Method Room Air 05/27/25 06:24 Allergies Allergy/AdvReac Type Severity Reaction Status Date / Time Penicillins Allergy Hives Verified 05/27/25 06:15 Home Medications ?Medication ?Instructions ?Recorded ?Confirmed ?Type omeprazole 20 mg capsule,delayed 20 mg PO DAILY 11/21/22 05/27/25 History release tamsulosin 0.4 mg capsule 0.4 mg PO DAILY 11/21/22 05/27/25 History rosuvastatin 10 mg tablet 10 mg PO DAILY 05/07/25 05/27/25 History Patient hx anesthesia problems: none Family hx anesthesia problems: none Results Review: All pre-operative results and documents have been reviewed as part of the pre-operative evaluation. [facility] Social History Social History (Updated 03/09/25 @ 10:51 by Kim Lynn MA) Smoking status: Never smoker Second hand tobacco smoke exposure: Yes Substance use type: does not use Living arrangements: alone Spiritual care concerns: No Anes - Eval Final PreProcedure Day of Procedure 05/27/25 06:52 Heart: regular rate and rhythm Lungs: clear to auscultation Airway: Mallampati scale class III Last oral intake: >/= 8 hours ASA classification: II Anesthetic plan: proceed Results Review: All pre-operative results and documents have been reviewed as part of the pre-operative evaluation. Informed Consent: The patient's anesthetic plan and its attendant risks and benefits were discussed with the patient/family/POA. Questions were solicited and answers provided to the satisfaction of the patient/family/POA.
[2025-05-27] MEDS: LIDO 1%/EPINEPHRINE 1:100,000 20 ML VIAL 8 ML INFILTRATE (07:40)
[2025-05-27 07:49] VITALS: BP 101/53; PULSE 71; RESP 16; O2SAT 96
--- NOTE | 2025-05-27 07:53 | WPDANESPN ---
Anes - Prog Note Post-Op Date/Time: 05/27/25 07:53 Vital Signs: Last Vital Signs Temp 98.4 F 05/27/25 06:24 Pulse 63 05/27/25 06:24 Resp 18 05/27/25 06:24 BP 140/87 05/27/25 06:24 Pulse Ox 99 05/27/25 06:24 O2 Del Method Room Air 05/27/25 06:24 Pain Score (VAS): no Patient Feedback: Patient satisfied with anesthetic care.
[2025-05-27 08:15] VITALS: BP 108/61; PULSE 56; RESP 16; O2SAT 99
== END 2025-05-27 08:48 | disposition home or self-care (01) ==
PROVIDERS: PCP Family Medicine; Visit Provider Plastic Surgery
PROC: 01N54ZZ Release Median Nerve, Percutaneous Endoscopic Approach (ICD-10-PCS; CPT 29848; principal; 2025-05-27 07:30)
PROC: (CPT 64718; 2025-05-27 07:30)
DX: G56.02 Carpal tunnel syndrome, left upper limb (principal); G56.22 Lesion of ulnar nerve, left upper limb
CPT/HCPCS: 29848; 64718

== ENCOUNTER 2025-07-13 01:01 | Day surgery (SDC) | payer MEDICARE, SELFPAY ==
[2025-07-02 14:17] VITALS: BMI 27.2
--- OUTSIDE RECORDS SUMMARY | 2025-07-05 05:34 | XMS_ITS | Continuity of Care Document ---
Author Organization [facility] Address [address] [place] [address] Phone Care Team Providers Care Cut Order Hand Name Role Phone Ene Rowley Unavailable Unavailable Allergies, Adverse Reactions, Alerts Substance Reaction Status Criticality No Known Allergies Active No Inform ation Medications Medication Instructions Dosage Effective Dates (start - stop) Status Comments albuterol sulfate HFA 90 mcg/actuation aerosol inhaler INHALE 2 PUFFS BY MOUTH EVERY 4 TO 6 HOURS NEEDED - Active furosemide 40 mg tablet take 1 tablet by oral route twice daily - Active potassium chloride ER 10 mEq tablet,extended release take 1 tablet by oral route 2 times every day with food 1 tablet - Active metoprolol tartrate 25 mg tablet take 1 tablet by oral route 2 times every day 1 tablet - Active amiodarone 200 mg tablet take 1 tablet by oral route every day 1 tablet - Active mexiletine 150 mg capsule take 1 capsule by oral route every 8 hours with food - Active warfarin 5 mg tablet 2 tablets (10 mg) daily - Active atorvastatin 20 mg tablet take 1 tablet by oral route every day 20 MG - Active Lidocaine Pain Relief 4 % topical patch - Active lisinopril 5 mg tablet take 1/2 tablet b y mouth daily - Active ascorbic acid (vitamin C) 500 mg capsule 1tablet by mouth daily - Active cyanocobalamin (vit B-12) 250 mcg tablet Take one tablet by mouth daily - Active levothyroxine 50 mcg capsule take 1 capsule by oral route every day 50 MCG - Active pantoprazole 40 mg tablet,delayed release take 1 tablet by oral route every day 40 MG - Active gabapentin 300mg capsule Take four capsules by mouth daily - Active hydrocodone-acetaminoph en 10-325mg tablet As Needed - Active amitriptyline 50mg tablet Take one tablet by mouth daily - Active Aspir-81 81mg tablet,delayed release (DR/EC) Use as Directed - Active Procedures Procedure Date High level of MDM Mgmt Complx Cond (MED-MRP only) 025 High level of MDM Mgmt Complx Cond (MED-MRP only) High level of MDM Mgmt Complx Cond [...] Office Visit Established L Heart Artery/ventrical Angio Conscious Sedation >5 1st 15 min 2023 [...] Visit New Office Visit EstablishedOffic/outpt E natalya Saucedo Advance Directives Directive Yes / No Effective Date File Name No Information Encounters Encounter Description Practice Location Reason(s) For Visit Diagnoses Date Provider Providers Copied on Encounter [facility] [address] [place] [address], [facility], tel: [phone] [facility] No Information 5 [employer] Dirk Luque. [address] [place], [place], [facility], [place]. tel: [phone] High level of MDM [facility], [address] [place] [address], [facility], tel: [phone] [facility] Atherosclerotic heart disease of [place] coronary artery without angina pectorisCardiomyopat hy, unspecifiedChronic obstructive pulmonary disease, unspecifiedChronic total occlusion of coronary arteryEssential (primary) hypertensionHyperlip idemia, unspecifiedPeriphera l vascular disease, unspecifiedPresence of automatic (implantable) cardiac defibrillatorPresenc e of other heart-valve replacementSyncope and collapseType 2 diabetes mellitus without complicationsVentric ular tachycardia, unspecified Sep- 5 Stu Mike. [address] [place], [address], [place]. tel: [phone] [facility] [address] [place] [address], [facility], tel: [phone] [facility] No Information 5 [employer] Dirk Luque. [address], [place], [address], [place]. tel: [phone] High level of [facility], [address] [place], [place], [facility], tel: [phone] [facility] Cardiomyopathy, unspecifiedChronic systolic (congestive) heart failureAtherosclerot ic heart disease of [place] coronary artery without angina pectorisPresence of other heart-valve replacementVentricul ar tachycardia, unspecifiedPresence of automatic (implantable) cardiac defibrillatorOther intermediate teacher (current) drug therapyEssential (primary) hypertensionHyperlip idemia, unspecifiedType 2 diabetes mellitus without complicationsChronic obstructive pulmonary disease, unspecifiedBody mass index (BMI) 36.0-36.9, adultOther obesity due to excess calories 5 Vadim Sanders. [address] [place], [place], [facility], . tel: [phone] High level of [facility], [address] [place] [address], [facility], tel: [phone] [facility] Atherosclerotic heart disease of [place] coronary artery without angina pectorisCardiomyopat hy, unspecifiedChronic total occlusion of coronary arteryEssential (primary) hypertensionHyperlip idemia, unspecifiedPeriphera l vascular disease, unspecifiedSyncope and collapseVentricular tachycardia, unspecified 5 Stu Mike. [address] [place], [place], [facility], . tel: [phone] High level of [facility], [address] [place], [place], [facility], tel: [phone] [facility] Atherosclerotic heart disease of [place] coronary artery without angina pectorisCardiomyopat hy, unspecifiedChronic total occlusion of coronary arteryEssential (primary) hypertensionHyperlip idemia, unspecifiedOther specified postprocedural statesPeripheral vascular disease, unspecifiedSyncope and collapseVentricular tachycardia, unspecified 5 Stu Mike. [address] [place], [place], [facility], . tel: [phone] [facility] Established [facility] [address] [place] [address], [facility], tel: [phone] [facility] Peripheral vascular disease, unspecified 5 Stach Sheeba. [address] [place], [facility], [place]. tel: [phone] [facility], [address] [place] [address], [facility], [place] tel: [phone] [facility] Peripheral vascular disease, unspecified Jan-0 5 Stach Sheeba. [address], [place], [place], [facility], [place]. tel: [phone] Referring Provider: Lizzy Acosta, [address] [facility], [place], [place], [facility]. tel:[phone] High level of MDM [facility], [address] [place] [address], [facility], [place] tel: [phone] [facility] Atherosclerotic heart disease of [place] coronary artery without angina pectorisCardiomyopat hy, unspecifiedChronic total occlusion of coronary arteryEssential (primary) hypertensionHyperlip idemia, unspecifiedPeriphera l vascular disease, unspecifiedSyncope and collapseVentricular tachycardia, unspecified 5 Stu Mike. [address] [place], [facility], [place]. tel: [phone] [facility], [address] [place] [address], [facility], [place] tel: [phone] [facility] Cardiomyopathy, unspecified 5 Denise Michel. [address] [place], [place], [facility], [place]. tel: [phone] Office Visit Established [facility], [address] [place] [address], [facility], [place] tel: [phone] [facility] Dyspnea, unspecifiedChronic obstructive pulmonary disease, unspecifiedEmphysema , unspecifiedChronic respiratory failure with hypoxiaNicotine dependence, cigarettes, in remission 5 Evert Luque. [address] [place], [facility], [place]. tel: [phone] High level of MDM [facility], [address] [place] [address], tel: [phone] [facility] Atherosclerotic heart disease of [place] coronary artery without angina pectorisChronic total occlusion of coronary arteryEssential (primary) hypertensionHyperlip idemia, unspecifiedPeriphera l vascular disease, unspecifiedSyncope and collapseVentricular tachycardia, unspecifiedAcute kidney failure, unspecified 5 [facility]. [address] [place] [address], . tel: [phone] High level of MDM [facility], [address] [place], [place], [facility], tel: [phone] [facility] Atherosclerotic heart disease of [place] coronary artery without angina pectorisChronic total occlusion of coronary arteryEssential (primary) hypertensionHyperlip idemia, unspecifiedOther specified postprocedural statesPeripheral vascular disease, unspecifiedVentricul ar tachycardia, unspecified 4 [facility]. [address] [place], [facility], [place]. tel: [phone] [facility] Visit Established [facility], [address] [place] [address], [facility], tel: [phone] [facility] Chronic obstructive pulmonary disease, unspecifiedEmphysema , unspecifiedIdiopathi c sleep related nonobstructive alveolar hypoventilationPerso nal history of nicotine dependence 4 Evert Luque. [address] [place], [facility], [place]. tel: [phone] High level of MDM [facility], [address] [place], [place], [facility], tel: [phone] [facility] Atherosclerotic heart disease of [place] coronary artery without angina pectorisChronic total occlusion of coronary arteryEssential (primary) hypertensionHyperlip idemia, unspecifiedPeriphera l vascular disease, unspecifiedSyncope and collapseVentricular tachycardia, unspecified 4 [facility]. [address] [place], [facility], . tel: [phone] [facility], [address] [place] [address], tel: [phone] [facility] Chronic obstructive pulmonary disease, unspecifiedEmphysema , unspecifiedPersonal history of nicotine dependenceIdiopathic sleep related nonobstructive alveolar hypoventilation 4 Evert Luque. [address], [place] [address], . tel: [phone] Referring Provider: Cee Peraza, [address], [place] [address]. tel:[phone] High level of [facility], [address] [place] [address], [facility], tel: [phone] [facility] Acute kidney failure, unspecifiedAtheroscl erotic heart disease of [place] coronary artery without angina pectorisChronic total occlusion of coronary arteryEssential (primary) hypertensionHyperlip idemia, unspecifiedOther specified postprocedural statesPeripheral vascular disease, unspecifiedSyncope and collapseVentricular tachycardia, unspecified 4 Stu Mike. [address] [place], [facility], [place]. tel: [phone] Office Visit Established [facility], [address] [place] [address], [facility], tel: [phone] [facility] Atherosclerotic heart disease of [place] coronary artery without angina pectorisVentricular tachycardia, unspecifiedAcute kidney failure, unspecifiedOther specified postprocedural states 4 Stu Mike. [address] [place], [facility], [place]. tel: [phone] Subsequent Hospital Care (>=50 min) [facility], [address] [place] [address], [facility], tel: [phone] [facility] Atherosclerotic heart disease of [place] coronary artery without angina pectorisChronic total occlusion of coronary arteryVentricular tachycardia, unspecifiedHyperlipi demia, unspecifiedEssential (primary) hypertensionPeripher al vascular disease, unspecifiedSyncope and collapse 4 Stu Mike. [address] [place], [facility], [place]. tel: [phone] Subsequent Hospital Care (>=50 min) [facility] [address] [place] [address], [address], [place] tel: [phone] [facility]/ Hyperlipidemia, unspecifiedEssential (primary) hypertensionVentricu lar tachycardia, unspecifiedPeriphera l vascular disease, unspecifiedSyncope and collapse 4 Peraza Jonne. [address], [place], [facility], [place]. tel: [phone] Subsequent Hospital Care (>=50 min) [facility], [address] [place] [address], [facility], [place] tel: [phone] [facility]/ Hyperlipidemia, unspecifiedEssential (primary) hypertensionVentricu lar tachycardia, unspecifiedPeriphera l vascular disease, unspecifiedSyncope and collapse 4 Peraza Jonnkle. [address], [place], [place], [facility], [place]. tel: [phone] Initial Inpatient Consult [facility], [address] [place] [address], [facility], [place] tel: [phone] [facility]/ Hyperlipidemia, unspecifiedEssential (primary) hypertensionVentricu lar tachycardia, unspecifiedPeriphera l vascular disease, unspecifiedSyncope and collapse 4 Peraza Jonnkle. [address], [place], [place], [facility], [place]. tel: [phone] [facility] [address] [place] [address], [facility], [place] tel: [phone] [facility] Presence of intraocular lens 2 Vero Marcial. [address], [address]. tel: [phone] [facility], [address] [place] [address], [facility], [place] tel: [phone] [facility] Age-related nuclear cataract, left eye 2 Vero Marcial. [address], [address]. tel: [phone] [facility], [address] [place] [address], [facility], tel: [phone] [facility] Presence of intraocular lens 2 Vero Marcial. [address], [facility]. tel: [phone] [facility], [address] [place] [address], [facility], tel: [phone] [facility] Presence of intraocular lens 2 Vero Marcial. [address] [place] [address]. tel: [phone] [facility], [address] [place] [address], [facility], tel: [phone] [facility] No Information 2 Vero Marcial. [address] [place] [address]. tel: [phone] [facility], [address] [place] [address], [facility], tel: [phone] [facility] No Information 2 Vero Marcial. [address] [place] [address]. tel: [phone] Referring Provider: Aniket Andres, [address] [place], [address]. tel:[phone] [facility] Visit Established [facility], [address] [place] [address], [facility], tel: [phone] [facility] Full incontinence of fecesDiarrhea, unspecified 5 Firch Michelle. [address] [place] [address], [address]. tel: [phone] [facility], [address] [place] [address], [address], [place] tel: [phone] [facility] DVRTCLO COLON W/O HMRHGDiarrhea 5 Fara Estrada. [address] [place] [address], [address]. tel: [phone] [facility], [address] [place] [address], [facility], [place] tel: [phone] [facility] FULL INCONTINENCE-FECESDi arrhea 5 Skyla Martinez. [address] [place], [place], [facility]. tel: [phone] Office Visit EstablishedO ffic/outpt Danuta Saucedo [facility], [address] [place] [address], [place], [facility], [place] tel: [phone] [facility] No Information 7 Prater Rubin. [address] [place], [address]. tel: [phone] Family History Family Member Type Diagnosis Age At Onset No Information Payers Payer name Insurance type Covered democrat ID Authoriza tibyron(s) Medicare Part B (NGS) M [id number] For Life C [id number] Social History Type Description Quantity Date Captured Comments Sex Male Smoking Status No Information Chief Complaint And Reason For Visit No Information History Of Present Illness Encounter Date Complaint History Of Prese nt Illness No Information Instructions Date Instruction Additional Infor mation WEIGH DAILY EVERY MO RNING AFTER FIRST VOID AND CALL FOR WT GAIN OF MORE THAN 3 LBS FROM ONE MORNING TO THE NEXT OR 5 LBS IN ONE WEEK Low-sodium diet recommended Lasix increased to 4 0 mg 1 tablet twice a dayStat basic metabolic panel to be rechecked in 2 weeksChest x-ray today Assessments Type Assessment Date No Information
--- OUTSIDE RECORDS SUMMARY | 2025-07-13 01:05 | XMS_ITS | Clinical Summary ---
Author Organization [facility] Address Formerly [facility] [place] [address] Care Team Providers Care Care Specialist Name Role Phone Inocente Kohler MD Primary Care Provider [phone] Allergies Active Allergy Reactions Criticality Noted Date [...] Encounters Date Type Department Care Team Description 07/07/2025 8:57 AM CDT - 07/07/2025 11:59 PM CDT Hospital Encounter [facility] [address] [place] [address] Marian Gomez, MAXIM Discharge Disposition: Home or Self Care (Routine Discharge) 07/07/2025 Travel 06/30/2025 11:25 AM CDT - 06/30/2025 11:59 PM CDT Hospital Encounter [place] [address] [place] [address] Marian Gomez NP Discharge Disposition: Home or Self Care (Routine Discharge) 06/30/2025 Orders Only [place] [address] [place] [address] Marian Gomez NP 06/29/2025 2:09 PM CDT - 06/29/2025 11:59 PM CDT Hospital Encounter [address] [place] [address] Marian Gomez NP Discharge Disposition: Home or Self Care (Routine Discharge) 06/29/2025 Orders Only [place] [address] [place] [address] Marian Gomez NP 06/29/2025 Travel 05/20/2025 8:00 AM CDT - 05/20/2025 11:59 PM CDT Hospital Encounter [place] [address] [place] [address] Melissa Galeana MD Discharge Disposition: Home or Self Care [...] place to sleep or slept in a group home (including now)? 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 SECRETARY Gender Identity Not on file Sexual Orientation Not on file Last Filed Vital Signs Vital Sign Reading Time Taken Comments Blood Pressure 136/68 11/25/2022 5:07 AM CONSTRUCTION SECRETARY Pulse 71 11/25/2022 5:07 AM CONSTRUCTION SECRETARY Temperature 37 C (98.6 F) 11/25/2022 5:07 AM CONSTRUCTION SECRETARY Respiratory Rate 20 11/25/2022 5:07 AM CONSTRUCTION SECRETARY Oxygen Saturation 97% 11/25/2022 5:07 AM CONSTRUCTION SECRETARY Inhaled Oxygen Concentration - - Weight 76 kg (167 lb 9.6 oz) 11/22/2022 6:49 PM CONSTRUCTION SECRETARY Height 170.2 cm (5' 7) 11/22/2022 6:49 PM CONSTRUCTION SECRETARY Body Mass Index 26.25 11/22/2022 6:49 PM CONSTRUCTION SECRETARY Plan of Treatment Health Maintenance Due Date Last Done Comments Hepatitis C 1972 DTaP, Tdap and Td Vaccines ( 1 - Tdap) 1973 Pneumococcal Vaccine: 50+ Years (1 of 1 - PCV) 2004 Zoster Vaccines (1 of 2) 2004 Annual Medicare Wellness Visit 2019 COVID-19 Vaccine (1 - 2023-2 5 season) 2025 RSV Immunization or 60+ Years (1 - [...] ADLs upon discharge from hospital Lifestyle 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 Procedure Name Priority Date/Time Associated Diagnosis Comments CT ABD+PEL WWO CON Routine 07/07/2025 9: 21 AM CDT Unspecified abdominal pain Change in bowel habit Melena Diarrhea CALPROTECTIN FECAL Routine 06/30/2025 9: 30 AM CDT Diarrhea, unspecified Unspecified abdominal pain Change in bowel habit Melena Other specified diseases of the digestive system TISSUE TRANSGLUTAMINASE IGA AB Routine 06/29/2025 2:23 PM CDT HC GAMMAGLOBULIN Routine 06/29/2025 2:23 PM CDT Diarrhea, unspecified Unspecified abdominal pain Change in bowel habit Melena Other specified diseases of the digestive system US GROIN NON VASCULAR Routine 05/20/2025 8:35 AM CDT Right inguinal hernia COLONOSCOPY 10/25/2020 8:25 AM CONSTRUCTION SECRETARY from Last 3 Months or Most Recently Relevant to Health Maintenance Results * CT ABD+PEL WWO CON (07/07/2025 9:21 AM CDT) Anatomical Region Laterality Modality Abdomen Computed Tomogra phy 07/08/2025 9:00 AM CDT Impressions 07/08/2025 4:21 PM CDT Impression: 1. No acute imaging abnormality to explain the patient's symptoms. 2. There is mild prominence of the vasa recta involving the sigmoid colon and rectum with mildly prominent pericolonic lymph nodes. This is nonspecific but could be secondary to prior episodes of inflammation. No definite bowel wall thickening or pericolonic inflammatory stranding. 3. Minimally prominent perirectal vasculature which does appear to track into the wall of the rectum and anus and hemorrhoids are not excluded. 4. Single solid pulmonary nodule identified, as per Fleischner Society guidelines a CT scan of the chest should be performed within the next 6-12 months. Dictated By: Leonardo Sexton MD on 07/08/2025 9:00 AM The attending radiologist has reviewed the image(s) and agrees with the content of this report. Referred By: MARIAN GOMEZ Interpreted By: Leonardo Sexton MD, 07/08/2025 9:00 AM Narrative 07/08/2025 4:[address] [place] [id number] [place] [address] Examination: CT abdomen and pelvis with and without IV contrast. Exam time: 07/07/2025 9:12 AM Clinical Information: Change in bowel habits, abdominal pain. Frequent diarrhea and noticed red blood in stools. Comparison:CT abdomen pelvis 11/22/2022 Technique: IV contrast: 95 ml of Isovue 370.was administered without immediate complications. Oral contrast: None. Technical comments: Standard technique with sagittal and coronal reconstructions. Dose reduction: This CT exam was performed using dose lowering techniques, which may include, but is not limited to, dose reduction technique, automated exposure control, and/or the use of iterative reconstruction, in accordance with ALARA (As Low As Reasonably Achievable)/Image Gently principle. Findings: LOWER CHEST Heart is normal in size. Dependent atelectasis. Bronchiolectasis. One slightly larger than 6 mm nodule present (3, 1). Granulomata. No pleural or pericardial effusions. UPPER ABDOMEN Liver and bile ducts: The liver is normal in both size and contour. No focal liver lesion. Portal vein and hepatic veins are patent. No biliary dilatation. Gallbladder: No gallbladder wall thickening or pericholecystic fluid. Gallstones. Pancreas: The pancreas has normal morphology without any peripancreatic inflammation. Spleen: The spleen is normal in size. RETROPERITONEUM Adrenals: Left adrenal adenoma, no further follow-up recommended as per consensus guidelines. Kidneys: The kidneys have normal morphology and enhance symmetrically. Left renal cyst, no follow-up recommended as per consensus guidelines. Lymph nodes: No lymphadenopathy in the abdomen or pelvis. BOWEL AND PERITONEUM Stomach:The stomach has normal morphology Bowel: Normal in caliber and wall thickness. Colonic diverticula. Appendix:The appendix is normal. Free air or fluid: None. VASCULATURE The abdominal aorta is normal in caliber. Visceral arteries and portal venous system are patent. Atherosclerotic aorta. PELVIS Slightly nondistended bladder. Prostatomegaly with prostatic calcifications. BONES/SOFT TISSUES No fracture or aggressive osseous lesion is identified. There are degenerative changes throughout the visualized spine. Bony island seen in the right inferior pubic ramus. Procedure Note David Dee MD - 07/08/[address] [place] [id number] [place] [address] Examination: CT abdomen and pelvis with and without IV contrast. Exam time: 07/07/2025 9:12 AM Clinical Information: Change in bowel habits, abdominal pain. Frequentdiarrhea and noticed red blood in stools. Comparison:CT abdomen pelvis 11/22/2022 Technique: IV contrast: 95 ml of Isovue 370.was administered without immediatecomplications. Oral contrast: None. Technical comments: Standard technique with sagittal and coronalreconstructions. Dose reduction: This CT exam was performed using dose lowering techniques,which may include, but is not limited to, dose reduction technique,automated exposure control, and/or the use of iterative reconstruction, inaccordance with ALARA (As Low As Reasonably Achievable)/Image Gentlyprinciple. Findings: LOWER CHEST Heart is normal in size. Dependent atelectasis. Bronchiolectasis. Oneslightly larger than 6 mm nodule present (3, 1). Granulomata. No pleuralor pericardial effusions. UPPER ABDOMEN Liver and bile ducts: The liver is normal in both size and contour. Nofocal liver lesion. Portal vein and hepatic veins are patent. No biliarydilatation. Gallbladder: No gallbladder wall thickening or pericholecystic fluid.Gallstones. Pancreas: The pancreas has normal morphology without any peripancreaticinflammation. Spleen: The spleen is normal in size. RETROPERITONEUM Adrenals: Left adrenal adenoma, no further follow-up recommended as perconsensus guidelines. Kidneys: The kidneys have normal morphology and enhance symmetrically.Left renal cyst, no follow-up recommended as per consensus guidelines. Lymph nodes: No lymphadenopathy in the abdomen or pelvis. BOWEL AND PERITONEUM Stomach:The stomach has normal morphology Bowel: Normal in caliber and wall thickness. Colonic diverticula. Appendix:The appendix is normal. Free air or fluid: None. VASCULATURE The abdominal aorta is normal in caliber. Visceral arteries and portalvenous system are patent. Atherosclerotic aorta. PELVIS Slightly nondistended bladder. Prostatomegaly with prostaticcalcifications. BONES/SOFT TISSUES No fracture or aggressive osseous lesion is identified. There aredegenerative changes throughout the visualized spine. Bony island seen inthe right inferior pubic ramus. Impression: 1. No acute imaging abnormality to explain the patient's symptoms. 2. There is mild prominence of the vasa recta involving the sigmoidcolon and rectum with mildly prominent pericolonic lymph nodes. This isnonspecific but could be secondary to prior episodes of inflammation. Nodefinite bowel wall thickening or pericolonic inflammatory stranding. 3. Minimally prominent perirectal vasculature which does appear to trackinto the wall of the rectum and anus and hemorrhoids are not excluded. 4. Single solid pulmonary nodule identified, as per Fleischner Societyguidelines a CT scan of the chest should be performed within the next 6-12months. Dictated By: Leonardo Sexton MD on 07/08/2025 9:00 AM The attending radiologist has reviewed the image(s) and agrees with thecontent of this report. Referred By: MARIAN GOMEZ Interpreted By: Leonardo Sexton MD, 07/08/2025 9:00 AM us Marian Gomez EMERGENCY VETERINARY ASSISTANT CT Final Result * (ABNORMAL) CALPROTECTIN FECAL (06/30/2025 9:30 AM CDT) CALPROTECTIN (STOOL) 1,210(H) mcg/g 07/08/2025 7:18 PM CDT [facility] Comment: Reference Range: <50 Normal 50-120 Borderline >120 Elevated Calprotectin in Crohn's disease and ulcerative colitis can be five to several thousand times above the reference population (50 mcg/g or less). Levels are usually 50 mcg/g or less in healthy patients and with irritable bowel syndrome. Repeat testing in 4-6 weeks is suggested for borderline values. Test performed by [facility] [address] [place] [address] Supervisor [employer]: Anne العلي MD,PHD,CARLY Test Reported by [facility], [facility], [address] [place], [place] Shailesh Crandall M.D., Ph.D., Director of Laboratories , [place] [id number] STOOL SPECIMEN / Unknown 06/30/2025 9:30 AM CDT us Marian Gomez EMERGENCY VETERINARY ASSISTANT BODY FLUIDS AND STOOLS ORDERA BLES Final Result [facility] [address] [place] [address], [place] [phone] * TISSUE TRANSGLUTAMINASE IGA AB (06/29/2025 2:23 PM CDT) TISSUE TRANSGLUTAMINASE IGA AB 0.7 U/ML 07/01/2025 2:45 PM CDT [facility] Comment: NEGATIVE <7 ABIGAIL U/mL EQUIVOCAL 7-10 ABIGAIL U/mL POSITIVE >10 ABIGAIL U/mL 06/29/2025 2:23 PM CDT Marian Gomez NP LABORATORY Final Result Performing Organization Address [facility] Co de Phone Number [facility] [address] [place] [address], [id number] * CELIAC DISEASE ANTIBODY PANEL (06/29/2025 2:23 PM CDT) IGA 226.0 70.0 - 400.0 MG/DL 06/29/2025 6:27 PM CDT [facility] 06/29/2025 2:23 PM CDT Marian Gomez NP LABORATORY Final Result Performing Organization Address [facility] Co de Phone Number [facility] [address] [place] [address], [place] [phone] * US GROIN NON VASCULAR (05/20/2025 8:35 AM CDT) Anatomical Region Laterality Modality Pelvis Ultrasound 05/21/2025 1:52 PM CDT Impressions 05/21/2025 1:55 PM CDT IMPRESSION: No evidence of right inguinal hernia. Ordered By: MELISSA GALEANA Interpreted By: Wilfrido Jalloh MD, 05/21/2025 1:52 PM Narrative 05/21/2025 1:[address] PM [address] [place] [id number] Examination: Nonvascular right groin sonogram Exam time: [...] Procedure Note Wilfrido Jalloh MD - 05/21/[address] [place] [id number] Examination: Nonvascular right groin sonogram Exam time: [...] evidence of right inguinal hernia. Ordered By: MELISSA GALEANA Interpreted By: Wilfrido Jalloh MD, 05/21/2025 1:52 PM us Melissa Galeana MD ULTRASOUND Final Resu lt * COLONOSCOPY (10/25/2020 8:25 AM CONSTRUCTION SECRETARY) us Tone Cam MD GI PROCEDURE ORDERABLES Final Result from Last 3 Months or Most Recently Relevant to Health Maintenance Insurance MEDICARE AET[employer] Advance Directives * Full Code (Latest Code Status on File) Date Activated Date Inactivated Comments 11/22/2022 6:39 PM 11/25/2022 1:28 PM Care Teams Care Specialist Relationship Specialty Start Date End Date Inocente Kohler MD [address] [place] [id number] PCP - General FAMILY PRACTICE 09/28/20
[2025-07-13 09:55] VITALS: BP 138/65; PULSE 82; RESP 19; TEMP 36.6; O2SAT 97
[2025-07-13] MEDS: LACTATED RINGERS 1,000 ML 150 ML IV CONT (10:08)
--- NOTE | 2025-07-13 10:37 | WPDANESEPP ---
Anes - Eval Pre Procedure Procedure: Operation Date: 07/13/25 11:00 Proposed Procedures p Diagnostic Colonoscopy - Ron Short MD Date/Time: 07/13/25 10:37 Surgeon: Robert Preop Diagnosis: Abdominal pain with contractions Pre Op Diagnosis: Diarrhea, unspecified Patient Data Age: 69 Gender: M Height: 1.65 m Weight: 71.1 kg Last Vital Signs Temp 97.8 F 07/13/25 09:55 Pulse 82 07/13/25 09:55 Resp 19 07/13/25 09:55 BP 138/65 07/13/25 09:55 Pulse Ox 97 07/13/25 09:55 O2 Del Method Room Air 07/13/25 09:55 Allergies Allergy/AdvReac Type Severity Reaction Status Date / Time Penicillins Allergy Hives Verified 07/13/25 09:53 Home Medications ?Medication ?Instructions ?Recorded ?Confirmed ?Type tamsulosin 0.4 mg capsule 0.4 mg PO DAILY 11/21/22 07/13/25 History rosuvastatin 10 mg tablet 10 mg PO DAILY 05/07/25 07/13/25 History dicyclomine 10 mg capsule 10 mg PO TID PRN abdominal pain 06/29/25 07/02/25 Rx #90 caps omeprazole 20 mg capsule,delayed 10 mg PO DAILY 06/29/25 07/13/25 History release ciprofloxacin HCl 500 mg tablet 500 mg PO Q12H 10 days #20 tabs 07/09/25 07/13/25 Rx metronidazole 500 mg tablet 500 mg PO Q8H 10 days #30 tabs 07/09/25 07/13/25 Rx : gestational age HCG: positive Patient hx anesthesia problems: none Family hx anesthesia problems: none Results Review: All pre-operative results and documents have been reviewed as part of the pre-operative evaluation. [facility] Past Medical History Medical History GERD (gastroesophageal reflux disease) Gas bloat syndrome Blood in stool Change in bowel habits Abdominal pain Diarrhea Carpal tunnel syndrome High cholesterol Social History Social History Smoking status: Never smoker Second hand tobacco smoke exposure: No Alcohol intake: never Substance use: never Substance use type: does not use Living arrangements: alone Spiritual care concerns: No Exam Day of Procedure 07/13/25 10:37 Patient weight: overweight
--- NOTE | 2025-07-13 10:39 | WPDHPUPDATE1 ---
History and Physical Update Update Date/Time: 07/13/25 10:39 History and Physical has been reviewed, including an updated exam of the patient. There are NO changes in the patient's condition. Risks, benefits, and alternatives have been discussed and questions answered. Patient agrees to proceed with procedure.
--- NOTE | 2025-07-13 10:41 | P.PNAN_ITS ---
Anes - Eval Final PreProcedure Day of Procedure 07/13/25 10:41 Patient weight: overweight Heart: regular rate and rhythm Lungs: clear to auscultation Airway: Mallampati scale class II Neurological: alert and oriented Last oral intake: >/= 8 hours ASA classification: II Emergent: no Anesthetic plan: proceed Anesthesia type and monitoring: general GIVS and standard monitoring Results Review: All pre-operative results and documents have been reviewed as part of the pre- operative evaluation. Informed Consent: The patient's anesthetic plan and its attendant risks and benefits were discussed with the patient/family/POA. Questions were solicited and answers provided to the satisfaction of the patient/family/POA.
--- NOTE | 2025-07-13 10:57 | S_PTH ---
PATIENT: DIMAS GRIFFIN LOC: [facility] Hern[facility]dez#:[id number] AGE/SX: 69/M ROOM: RE07/13/[address]: Ron hSort MD : [id number] BED: DIS: 07/13/2025 SPEC #: [id number] RECD: 07/13/25 11:54 STATUS: TAE REJaimee #: [id number] AVA: 07/13/25 10:[address]: Ron Short DEPT: [facility] Surgical RECD BY: Marie Gilmore ENTERED: 07/13/25 11:54 SP TYPE: Surgical OTHR DR: Inocente Kohler, Tissues: A - Colon Biopsy B - Colon Biopsy Procedures: Hematoxylin and Eosin Stain Gross and Microscopic Level 4
[2025-07-13 11:00] VITALS: BP 114/49; PULSE 57; RESP 15; O2SAT 99
[2025-07-13 11:10] VITALS: BP 101/43; PULSE 59; RESP 18; O2SAT 100
[2025-07-13 11:20] VITALS: BP 118/60; PULSE 62; RESP 20; O2SAT 97
== END 2025-07-13 12:10 | disposition home or self-care (01) ==
PROVIDERS: PCP Family Medicine; Referring Provider Nurse Practitioner Family; Visit Provider Internal Medicine Gastroenterology
PROC: 0DJD8ZZ Inspection of Lower Intestinal Tract, Via Natural or Artificial Opening Endoscopic (ICD-10-PCS; CPT 45378; principal; 2025-07-13 11:00)
DX: K51.814 Other ulcerative colitis with abscess (principal); K64.8 Other hemorrhoids; K21.9 Gastro-esophageal reflux disease without esophagitis; E78.00 Pure hypercholesterolemia, unspecified; M35.3 Polymyalgia rheumatica; Z98.890 Other specified postprocedural states; Z96.651 Presence of right artificial knee joint; Z87.442 Personal history of urinary calculi
CPT/HCPCS: 45380; 88305; J2003; J2405; J7120